=== PATIENT | male | born 2000 | race Two or more races ===

== ENCOUNTER 2021-06-16 17:10 | Emergency (ER) | payer MEDICAID, OTHER ==
[2021-06-16 17:24] VITALS: BP 115/56
--- NOTE | 2021-06-16 17:54 | ED Physician Documentation ---
History of Present Illness - Stated complaint Stated Complaint: LT HAND LAC/INJ - Chief complaint Chief Complaint: Laceration - History obtained from History obtained from: Patient - History of Present Illness Timing: Today, How many hours ago (1) Pain level max: 4 Pain level now: 3 - Additonal information Additional information: 20 year old male with L thumb laceration from a knife at work today. Patient is right-handed. Tetanus is up-to-date. No numbness or tingling. Worse with movement, better with rest. Review of Systems Constitutional: denies: Fever Neurologic: denies: Focal weakness PD PAST MEDICAL HISTORY - Past Medical History Past Medical History: No Cardiovascular: None Respiratory: None Neuro: None Endocrine/Autoimmune: None GI: None : None HEENT: None Psych: None Musculoskeletal: None Derm: None - Past Surgical History Past Surgical History: No - Allergies Allergies/Adverse Reactions: Allergies Allergy/AdvReac Type Severity Reaction Status Date / Time No Known Drug Allergies Allergy Verified 06/16/21 17:24 - Social History Does the pt smoke?: Yes Smoking Status: Light tobacco smoker Does the pt drink ETOH?: Yes Does the pt have substance abuse?: No - Immunizations Immunizations are current?: No PD ED PE NORMAL - Vitals Vital signs reviewed: Yes - General General: Alert and oriented X 3, No acute distress - Derm Derm: Warm and dry - Neuro Neuro: Alert and oriented X 3 PD ED PE EXPANDED - Extremities JOO UE/Hands Visual: 1 - laceration (2 cm, linear, subcutaneous. Neurovascular intact. Tendon intact. Tested against resistance.) Results - Vitals Vitals: Vital Signs - 24 hr 06/16/21 17:20 Temperature 36.8 C Heart Rate 88 Respiratory 14 Rate Blood Pressure 115/56 L O2 Saturation 98 Oxygen O2 Source Room air Procedures - Laceration (location) Left hand Length in cm: 2 Wound type: Linear, Into subcut fat Neurovascular status: Sensory intact, Motor intact, Vascular intact Tendon involvement: Tendon intact Anesthesia: Lidocaine 1% Wound preparation: Irrigated copiously NS, Wound explored, To the base Skin layer closure: Interrupted, Size #-0 - enter number (4), Sutures - enter # (3) Other: Patient tolerated well, No complications, Neurovascular intact, Dressing applied, Tetanus UTD PD MEDICAL DECISION MAKING - ED course Complexity details: considered differential, d/w patient ED course: Laceration repaired. Tolerated well. Warnings of infection and instructions on wound care given at bedside. Also counseled on how to minimize scarring. Patient counseled regarding signs and symptoms for which I believe and urgent re-evaluation would be necessary. Patient with good understanding of and agreement to plan and is comfortable going home at this time This document was made in part using voice recognition software. While efforts are made to proofread this document, sound alike and grammatical errors may occur. Departure - Departure Disposition: 01 Home, Self Care Clinical Impression: Laceration Condition: Good Instructions: ED Laceration Hand Follow-Up: your,doctor in 10-14 days for suture removal [Other] Comments: Keep the wound clean. Return if you worsen. Be gentle with the thumb for the next 3 to 4 days. The stitches will need to be removed in approximately 10 to 14 days either with your doctor or here. Return sooner for redness, swelling or drainage from the wound. Your tetanus shot was up-to-date Discharge Date/Time: 06/16/21 18:21
== END 2021-06-16 18:21 | disposition home or self-care (01) ==
LOC: ED 17:10
DX: S61.012A Laceration without foreign body of left thumb without damage to nail, initial encounter (principal); W26.0XXA Contact with knife, initial encounter; Y99.0 Civilian activity done for income or pay; Z72.0 Tobacco use
CPT/HCPCS: 12001; 99281